=== PATIENT | female | born 1980 | race Caucasian/White ===

== ENCOUNTER 2016-08-23 15:15 | Emergency (ER) | payer BC ==
[~2016-08-23] VITALS: Ht 157.5 cm; Wt 65.0 kg
[2016-08-23 15:17] VITALS: BP_DIAS 140; PULSE 85; RESP 12; TEMP 97.9; O2SAT 97
[2016-08-23] MEDS ORDERED: BIRTH CONTROL (16:41)
[2016-08-23 16:50] LABS: BLOOD, URINE MOD (NEG); CALCIUM OXALATE CRYSTALS,URINE OCC /hpf; COMMENT (UR) CULT NOT INDICATED; CULTURE IF INDICATED CULT NOT INDICATED; GLUCOSE,URINE 70 mg/dL (NEG); KETONE, URINE NEG (NEG); MUCUS URINE FEW /lpf (OCC); NITRITE,URINE NEG (NEG); PH, URINE 5.5 (5.0-8.5); SQUAMOUS EPITHELIAL CELL URINE <1 /hpf (0-5); URINE COLOR YELLOW (YELLW/STRAW)
--- NOTE | 2016-08-23 16:51 | PD ---
HPI Chief Complaint: Chest Pain Time Seen by Provider: 16:02 Travel History International Travel<30 days: No Contact w/Intl Traveler<30days: No Traveled to known affect area: No History of Present Illness HPI 36-year-old woman presents to the emergency department complaining of chest pain. Symptoms started last night. She got Botox injections and felt faint on the way home. Flexes, pass out. Started getting some of the chest tightness at night. Since the been constant since then. They've been worse today. No real shortness of breath. She never LAD symptoms like this before. She otherwise has been feeling generally well and healthy. History Past Medical History Medical History: Denies Significant Hx Social History Tobacco Use: No Allergies-Medications (Allergen,Severity, Reaction): Coded Allergies: No Known Allergies (Unverified , 08/23/16) Reported Meds & Prescriptions Reported Meds & Active Scripts Active Reported [ Control] Review of Systems Except as stated in HPI: all other systems reviewed are Neg Physical Exam Narrative GENERAL: Well-appearing 36 year-old woman, no acute distress. SKIN: Warm and dry. HEAD: Atraumatic. Normocephalic. CARDIOVASCULAR: Regular rate and rhythm. No murmur appreciated. RESPIRATORY: No accessory muscle use. Clear to auscultation. Breath sounds equal bilaterally. GASTROINTESTINAL: Abdomen soft, non-tender, nondistended. Hepatic and splenic margins not palpable. MUSCULOSKELETAL: No obvious deformities. No edema. NEUROLOGICAL: Awake and alert. No obvious cranial nerve deficits. Motor grossly within normal limits. Normal speech. Data Data Last Documented VS Vital Signs Date Time Temp Pulse Resp B/P Pulse Ox O2 Delivery O2 Flow Rate FiO2 08/23/16 16:12 16 98 Room Air 08/23/16 15:17 97.9 85 /140 Orders Electrocardiogram (08/23/16 15:51) Chest, Single Ap (08/23/16 15:51) Urinalysis - C+S If Indicated (08/23/16 16:02) Labs Laboratory Tests Test 08/23/16 16:10 Urine Color YELLOW Urine Turbidity CLEAR Urine pH 5.5 Urine Specific Perry 1.028 Urine Protein TRACE mg/dL Urine Glucose (UA) 70 mg/dL Urine Ketones NEG mg/dL Urine Occult Blood MOD Urine Nitrite NEG Urine Bilirubin NEG Urine Urobilinogen LESS THAN 2.0 MG/DL Urine Leukocyte Esterase NEG Urine RBC 5 /hpf Urine WBC 2 /hpf Urine Squamous Epithelial <1 /hpf Cells Urine Calcium Oxalate Crystals OCC /hpf Urine Mucus FEW /lpf Microscopic Urinalysis Comment CULT NOT INDICATED MDM Medical Decision Making Medical Screen Exam Complete: Yes Emergency Medical Condition: Yes Interpretation(s) My review of EKG: Normal sinus rhythm at a rate of 87, normal axis, normal intervals, no ischemia. Differential Diagnosis Anxiety, stress, vasovagal episode, ACS, PE, other Narrative Course Medical decision-making new 36 year-old woman presents to the emergency department complaining of chest pain. She looks well. Into some kind of anxiety or fainting reaction related to the Botox last night. Otherwise. We'll see any evidence of PE or DVT. No evidence of ACS. She is a little bit worried because she has had kidney stones before and some of the pain is sort of on her left side feels a little bit similar to previous stone. She does have just trace hematuria in her urine. No evidence of infection or severe obstruction. Recommend supportive treatment. Diagnosis Primary Impression: Chest pain Qualified Code: R07.9 - Chest pain, unspecified type Additional Impression: Flank pain Patient Instructions: General Instructions Additional Instructions: Take Naprosyn as needed for pain. Take Zofran as needed for nausea or vomiting. Return to the emergency department for any new or worsening symptoms. Med/Other Pt SpecificInfo: No Change to Meds Scripts Ondansetron Odt (Zofran Odt)4 Mg Tab4 Mg SL Q8HR PRN (Nausea/Vomiting) #15 TAB May substitute non-ODT form. Prov:Nino Mcguire MD 08/23/16 Naproxen (Naprosyn)500 Mg [id number] Mg PO BID PRN (PAIN SCALE 1 TO 10) #20 TAB Prov:Nino Mcguire MD 08/23/16 Disposition: 01 DISCHARGE HOME Condition: Stable Nino Mcguire MD Aug 23, 2016 16:51
[2016-08-23] MEDS ORDERED: ZOFR4TAB3 SL (16:59)
[2016-08-23] MEDS ORDERED: NAPR500 PO (16:59)
--- NOTE | 2016-08-24 10:25 | EKG ---
Date Performed: 08/23/2016 Time Performed: 16:20:18 PTAGE: 36 years EKG: Sinus rhythm NORMAL ECG NO PREVIOUS TRACING DOCTOR: Cheo Arrington Interpretating Date/Time 08/24/2016 10:23:59
== END 2016-08-23 17:36 | disposition home or self-care (01) ==
LOC: NETRI 15:15
DX: R07.9 Chest pain, unspecified (principal); R10.9 Unspecified abdominal pain
CPT/HCPCS: 81001; 93005